=== PATIENT | female | born 1930 | race Caucasian/White ===

== ENCOUNTER 2017-03-25 09:48 | Observation (INO) | payer MEDICARE, MEDICAID ==
[2017-03-25] MEDS ORDERED: Pantoprazole 40 MG VIAL ONE (10:25)
[2017-03-25] MEDS ORDERED: Ondansetron HCl/PF 4 MG/2 ML Vial ONE (10:25)
[2017-03-25 10:32] LABS: #Lymphocytes 0.9 thou/uL (1.20-3.40); #Monocytes 0.7 thou/uL (0.11-0.59); #Neutrophils 8.8 thou/uL (1.40-6.50); %Basophils 0.4 % (0.0-1.0); %Eosinophils 0.2 % (0.0-10.0); %Lymphocytes 8.5 % (21.0-51.0); %Monocytes 6.8 % (0.0-10.0); Hemoglobin 14.6 g/dL (12.0-16.0); Mean Corpuscular HGB CONC 32.9 g/dL (32.0-36.0); Mean Corpuscular Hemoglobin 30.8 pg (27.0-31.0); Mean Corpuscular Volume 93.4 fl (81.0-99.0); Mean Platelet Volume 8.1 fL (7.4-10.4); Platelet Count 283 thou/uL (130-400); RBC Distribution Width 12.6 % (11.5-14.5); Red Blood Cell (RBC) Count 4.76 mill/uL (4.20-5.40); White Blood Cell (WBC) Count 10.5 thou/uL (4.8-10.8)
[2017-03-25 10:48] LABS: ALT (SGPT) 49 U/L (8-55); AST (SGOT) 41 U/L (5-34); Albumin 4.1 g/dL (3.4-4.8); Alkaline Phosphatase 103 U/L (40-150); Anion Gap 20 mmol/L (10-20); BUN (Urea Nitrogen) 20 mg/dL (9.8-20.1); Bilirubin, Total 0.4 mg/dL (0.2-1.2); CK (CPK) 49 U/L (29-168); Calc. Creatinine Clearance 0 mL/min (70-130); Calcium 9.8 mg/dL (7.8-10.44); Carbon Dioxide 17 mmol/L (23-31); Chloride 104 mmol/L (98-107); Estimated GFR-MDRD 33; Globulin 4.8 g/dL (2.4-3.5); Glucose 213 mg/dL (83-110); Lipase 46 U/L (8-78); Protein, Total 8.9 g/dL (6.0-8.3); Sodium 137 mmol/L (136-145)
[2017-03-25 10:53] LABS: CKMB 0.8 ng/mL (0-6.6); Troponin I Less than 0.010 ng/mL (< 0.028)
--- NOTE | 2017-03-25 11:37 | RAD ---
ABDOMINAL SURVEY WITH UPRIGHT CHEST AND 2 VIEW ABDOMEN: HISTORY: Nausea, vomiting, and abdominal pain. COMPARISON: Comparison is made to abdominal survey of 12/23/12. FINDINGS: Lungs appear clear on the upright chest. I cannot exclude some mild left basilar atelectasis, althou gh this appears to be a stable appearance. Bowel gas pattern unremarkable. No free air. No mass effect. No abnormal calcification. Scoliotic curvature of the spine with degenerative spine change. Radiopaque suture overlies the lower abdomen . Vascular calcifications. IMPRESSION: Unremarkable exam. POS: OFF
[2017-03-25 11:50] LABS: Bilirubin Small (Negative); Blood, Urine Negative (Negative); Clarity CLOUDY (Clear); Glucose, Urine (Dipstick) 500 mg/dL (Negative); Leukocyte Small (Negative); Nitrite Positive (Negative); Protein, Urine (Dipstick) 30 mg/dL (Neg-Trace); Specific Gravity, Urine 1.019 (1.002-1.036)
[2017-03-25 11:52] LABS: Bacteria/HPF 4+ HPF (None Seen); Hyaline Casts/LPF 0-3 HYALINE CAST LPF (0-3 Hyaline); Pathc Cast-AUWi Flag 0.54 (0-2.49); RBC/HPF 0-3 HPF (0-3); Squamous Epithelial None Seen HPF (0-3); WBC/HPF 21-50 HPF (0-3)
[2017-03-25] MEDS ORDERED: Ondansetron ODT 4 MG TAB SL PRN (13:52)
[2017-03-25] MEDS ORDERED: Ondansetron HCl/PF 4 MG/2 ML Vial IVP PRN (13:52)
[2017-03-25] MEDS ORDERED: Dextrose 5 %-0.45 % NaCl 1,000 ML IV SCH (14:00)
[2017-03-25 14:14] VITALS: BMI 26.1
[2017-03-25] MEDS ORDERED: Dextrose 5% in Water 1,000 ML IV PRN (14:16)
[2017-03-25] MEDS ORDERED: Dextrose 50% Abboject 50 ML SYRINGE SLOW IVP PRN (14:16)
[2017-03-25] MEDS ORDERED: HumaLOG 300 UNITS/3 ML VIAL SC PRN (14:16)
[2017-03-25 14:29] LABS: Troponin I 0.028 ng/mL (< 0.028)
[2017-03-25] MEDS ORDERED: Cephalexin 250 MG CAP PO SCH (14:30)
[2017-03-25 14:32] LABS: Hemoglobin A1c 6.3 % (4.0-6.0)
[2017-03-25 14:39] LABS: Cardiac Risk 3.8 (Less than 4.5)
[2017-03-25] MEDS: Sodium Chloride 0.9% 1,000 ML IV SCH (15:33)
[2017-03-25] MEDS: Clotrimazole 1% Cream 15 GM TUBE TOP SCH (15:52)
--- NOTE | 2017-03-25 16:19 | HP-2 ---
TIME AND DATE OF SERVICE: 03/25/2017 at 1300 hours. CODE STATUS: FULL CODE. PRIMARY CARE PHYSICIAN: Dr. Heath Parkinson. ATTENDING: Zoya Delatorre M.D. RESIDENT: Tio Licea MD HISTORIAN: Patient. CHIEF COMPLAINT: Nausea and vomiting. HISTORY OF PRESENT ILLNESS: Anaya Headley is an 87-year-old female with past medical history of coron jose alejandro artery disease, hypertension, hyperlipidemia, and mild dementia who presents with nausea and vomi ting starting last night with associated gastric pain. It was characterized as constant and slightly burning. The emesis that she has been nonbilious and nonbloody. The epigastric pain started after the emesis began. She also has associated chills and fevers as well as fatigue and decreased appetit e. She also endorses increased urinary frequency, but no dysuria. She was admitted in 05/2016 for s imilar symptoms and had EGD done by Dr. York, which showed small erosions in the distal esophagus a nd a stricture. Dilation was done at that time. Nurse states that the patient smells of old urine a nd she has got a rash that appears to be ringworm on her inner thigh up to the perineum area. The pa tient stated that it had been itchy there as well. The patient tolerated the procedure well and was discharged soon thereafter. In the ER, the patient received Zofran and 1 liter bolus of normal salin e. PAST MEDICAL HISTORY: 1. Gastritis. 2. Dementia. 3. Hypertension. 4. Hyperlipidemia. 5. History of alcohol abuse. 6. Hiatal hernia. PAST SURGICAL HISTORY: 1. Hysterectomy. 2. EGD and dilation in 05/2016. ALLERGIES: No known drug allergies. MEDICATIONS: What patient stated was her medications was not congruent with ER. ER record shows the re is a possibility of the patient's underlying dementia may make it worse. She does not remember he r medications. Apparently, the patient's [id number] manages all of her medications. The ER lis t of medications included Coreg 6.25 mg p.o. daily, Colace 100 mg p.o. b.i.d. p.r.n., ferrous sulfate 325 mg p.o. b.i.d., calcium carbonate 600 mg p.o. daily, amlodipine 10 mg p.o. daily, Protonix 40 mg p.o. daily. FAMILY HISTORY: Noncontributory. SOCIAL HISTORY: The patient endorses history of alcohol abuse, but states that she currently does no t use any alcohol. Does not smoke and does not use any drugs. She lives at home with her daughter-i n-law. The nurse taking care of the patient stated that the patient lives alone [facility]. REVIEW OF SYSTEMS: Twelve point review of systems including general, eyes, ENT, respiratory, CV, GI, , skin, musculoskeletal, neuro and psych were all reviewed and were unremarkable unless otherwise stated in the HPI. PHYSICAL EXAMINATION: VITAL SIGNS: Blood pressure 148/87, pulse 90, respiratory rate 18, temperature 98.6, pulse ox 98% on room air. Current weight 61 kilograms. GENERAL: The patient is alert and oriented x4, in no acute distress, well-developed and well-nourish ed, appropriately interactive, but very malodorous smelling of old urine. HEENT: Eyes: Pupils equal, round, reactive to light and accommodation. Extraocular muscles intact. Conjunctiva within normal limits. ENT: Left ruptured tympanic membrane. Right tympanic membrane pearly suazo without bulging or erythema. Very poor dentition. Dry mucous membranes and oropharyngea l mucosa. NECK: Supple without lymphadenopathy. No thyromegaly. CARDIOVASCULAR: Regular rate and rhythm. No murmurs or gallops. RESPIRATORY: Normal effort, no retractions. LUNGS: Clear to auscultation bilaterally. SKIN: Warm and dry without cyanosis, but there is a lesion to inner medial and posterior left thigh extending to the perineal region. I discussed essential clearing and defined erythematous border. ABDOMEN: Soft, epigastric tenderness to palpation. No rebound or rigidity. Bowel sounds normoactiv e x4. No masses or distention. No CVA tenderness. EXTREMITIES: No clubbing, cyanosis or pitting edema. MUSCULOSKELETAL: Structure and tone within normal limits. Full range of motion. NEUROLOGIC: No focal deficits. Sensation within normal limits. PSYCHIATRIC: Appropriate. LABORATORY DATA: White blood cell count 10.5 with 84% neutrophils, hemoglobin 14.6, hematocrit 44.4, platelets 283. Sodium 137, potassium 4.0, chloride 104, carbon dioxide 17, BUN 20, creatinine 1.5, glucose 213, calcium 9.8, total protein 8.9, albumin 4.1, total bilirubin 0.4, AST 41, ALT 49, alkali ne phosphatase 103. CK 49, CK-MB 0.8. Troponin is less than 0.01. Lipase 46. UA significant for 3 0 of protein, small leukocyte esterase, positive nitrite, 15 ketones, 500 glucose, red blood cells 0- 3, white blood cells 21-50, and 4+ bacteria. EKG showed T-wave inversion in lateral leads, more pron ounced from previous EKG in 05/2016. ASSESSMENT AND PLAN: An 87-year-old female with past medical history of coronary artery disease, hyp ertension, hyperlipidemia, and dementia, who presents with intractable nausea and vomiting. 1. Intractable nausea and vomiting. Placed on tele observation, p.r.n. Zofran for nausea. Etiology of nausea and vomiting, unknown at this time considering gastritis. The patient does have urinary t ract infection, which can be contributing as well. EGD in 05/2016 showed stricture and esophagitis a nd dilation was performed at that time. Symptoms in the ER improved with antiemetic. We will start IV fluids at 100 mL an hour and start attempt to clear liquid diet. 2. Hyperglycemia. No previous diagnosis of type 2 diabetes. We will check hemoglobin A1c and give sliding scale insulin and Accu-Cheks for the time being. We will also check a fasting lipid panel. 3. Acute kidney injury versus chronic kidney disease. We will monitor kidney function including GFR and creatinine and give IV fluids at 100 mL an hour. The patient has already received a 1 liter marielos us normal saline in the ER. 4. Uncomplicated urinary tract infection. Urine cultures were done in the ER. We will start Keflex and give IV fluids at 100 mL an hour. 5. Tinea corporis, start Lotrimin. Continue to monitor. 6. Tachycardia low likelihood ratio of PE. We will rule out PE with D-dimer. We will also check TS H. Wells' score was 1.5. 7. Gastroesophageal reflux disease. We will give Protonix. 8. Dementia, chronic. The patient appears to be at baseline, but we are unable to confirm that with family. No family members were present. 9. Deep venous thrombosis prophylaxis, Lovenox. 10. Diet: Clear liquids with intent to advance as tolerated once the patient's nausea is more contr olled. 11. Activity: Fall precautions. 12. Ambulate with assist. 13. Code status: FULL CODE. DISPOSITION AND LENGTH OF HOSPITAL STAY: Two days. Symptomatic medication will be provided. History and physical exam as well as management discussed with Dr. Zoya Delatorre.
[2017-03-25 17:03] LABS: Troponin I 0.015 ng/mL (< 0.028)
[2017-03-25 18:18] LABS: Free T4 (Free Thyroxine) 1.16 ng/dL (0.70-1.48)
[2017-03-25] MEDS: Cephalexin 250 MG CAP PO SCH (20:37)
[2017-03-26] MEDS: Sodium Chloride 0.9% 1,000 ML IV SCH ×2 (00:21→10:29)
[2017-03-26 06:14] LABS: #Lymphocytes 1.2 thou/uL (1.20-3.40); #Neutrophils 6.5 thou/uL (1.40-6.50); %Eosinophils 0.4 % (0.0-10.0); %Lymphocytes 13.9 % (21.0-51.0); %Monocytes 11.1 % (0.0-10.0); %Neutrophils 74.6 % (42.0-75.0); Hemoglobin 11.4 g/dL (12.0-16.0); Mean Corpuscular HGB CONC 31.8 g/dL (32.0-36.0); Mean Corpuscular Volume 94.3 fl (81.0-99.0); Mean Platelet Volume 8.2 fL (7.4-10.4); Platelet Count 216 thou/uL (130-400); RBC Distribution Width 12.7 % (11.5-14.5); White Blood Cell (WBC) Count 8.7 thou/uL (4.8-10.8)
[2017-03-26] MEDS ORDERED: Iopamidol 370 76% 100 ML VIAL ONE (06:17)
--- NOTE | 2017-03-26 06:26 | PDOC.FM ---
- Subjective Subjective: Mrs. Headley is doing better this morning. She had no acute events overnight. She does complain of increased dysuria compared to yesterday. She denies fever , chest pain, dyspnea, n/v/d, abd pain. - Objective MAR Reviewed: Yes Vital Signs & Weight: Vital Signs (12 hours) Temp Pulse Resp BP BP Pulse Ox 03/26/17 04:33 98.7 F 89 24 H 125/60 92 L 03/25/17 20:26 99.9 F H 100 24 H 126/62 92 L 03/25/17 19:29 99.9 F H 100 24 H 126/62 92 L Weight Weight 64.138 kg I&O: 03/24/17 03/25/17 03/26/17 06:59 06:59 06:59 Intake Total 1722 Output Total 1650 Balance 72 Result Diagrams: 03/26/17 05:36 03/26/17 05:36 <Tio Licea - Last Filed: 03/26/17 12:59> - Objective Vital Signs & Weight: Vital Signs (12 hours) Temp Pulse Pulse Pulse Resp BP BP 03/26/17 15:15 98.1 F 99 22 H 03/26/17 12:34 100 92 145/79 H 140/74 03/26/17 11:23 98.4 F 90 18 03/26/17 09:35 92 92 134/69 141/64 H 03/26/17 07:50 98.7 F 89 24 H BP Pulse Ox Pulse Ox 03/26/17 15:15 142/74 H 93 L 03/26/17 12:34 92 L 03/26/17 11:23 135/62 93 L 03/26/17 09:35 03/26/17 07:50 Weight Weight 64.138 kg I&O: 03/25/17 03/26/17 03/27/17 06:59 06:59 06:59 Intake Total 2172 1011 Output Total 1975 550 Balance 197 461 Result Diagrams: 03/26/17 05:36 03/26/17 05:36 <Julieth Peña - Last Filed: 03/26/17 19:43> Phys Exam - Physical Examination Constitutional: NAD HEENT: moist MMs, sclera anicteric Neck: no JVD, supple, full ROM Respiratory: no wheezing, no rales, no rhonchi, clear to auscultation bilateral Cardiovascular: RRR, no significant murmur Gastrointestinal: soft, non-tender, no distention Musculoskeletal: no edema Neurological: non-focal, normal sensation, moves all 4 limbs Psychiatric: normal affect, A&O x 3 <Tio Licea - Last Filed: 03/26/17 12:59> Dx/Plan (1) Intractable nausea and vomiting Code(s): R11.2 - NAUSEA WITH VOMITING, UNSPECIFIED Status: Acute Plan: Has had control with Zofran, likely 2/2 gastritis (2) UTI (urinary tract infection), uncomplicated Code(s): N39.0 - URINARY TRACT INFECTION, SITE NOT SPECIFIED Status: Acute Plan: UA: Prot 30, LE Small, Nitrite Pos, Glucose 500, WBC 21-50, Bacteria 4+ Urine Cx pending pt stated on keflex (3) Tinea corporis Code(s): B35.4 - TINEA CORPORIS Status: Acute Plan: lotrimin started (4) Tachycardia Code(s): R00.0 - TACHYCARDIA, UNSPECIFIED Status: Acute Plan: Likely 2/2 hypovolemia, this morning HR is 89 However, D-dimer was elevated, V/Q scan pending TSH was low at 0.0866, Free T3 low at 1.51, Free T4 is normal at 1.16 (5) Dementia Code(s): F03.90 - UNSPECIFIED DEMENTIA WITHOUT BEHAVIORAL DISTURBANCE Status: Acute Plan: Chronic, seems to be at baseline (6) GERD with esophagitis Code(s): K21.0 - GASTRO-ESOPHAGEAL REFLUX DISEASE WITH ESOPHAGITIS Status: Acute Plan: Protonix (7) Acute kidney injury Code(s): N17.9 - ACUTE KIDNEY FAILURE, UNSPECIFIED Status: Inactive Plan: Cr at admission was 1.50, Cr is now 1.13, continue IVFs at 100 ml/hr, monitoring Cr and GFR (8) Hyperglycemia Code(s): R73.9 - HYPERGLYCEMIA, UNSPECIFIED Status: Inactive Plan: Hemoglobin A1c was 6.3, consider starting pt on metformin <Tio Licea - Last Filed: 03/26/17 12:59> Attending Addendum - Attending Addendum I personally evaluated the patient and discussed the management with Dr. Vinayak. I agree with the History, Examination, Assessment and Plan documented above with any addition or exceptions noted below. The patient is feeling much better today. She is tolerating po antibiotics. Will clarify if patient has family or 24 hour care. <Julieth Peña - Last Filed: 03/26/17 19:43>
[2017-03-26 06:29] LABS: Anion Gap 13 mmol/L (10-20); BUN (Urea Nitrogen) 11 mg/dL (9.8-20.1); Calc. Creatinine Clearance 37 mL/min (70-130); Calcium 7.8 mg/dL (7.8-10.44); Carbon Dioxide 20 mmol/L (23-31); Chloride 111 mmol/L (98-107); Estimated GFR-MDRD 46; Glucose 118 mg/dL (83-110); Potassium 3.6 mmol/L (3.5-5.1); Sodium 140 mmol/L (136-145)
[2017-03-26] MEDS ORDERED: Enoxaparin Sodium 30 MG/0.3 ML SYRINGE SC SCH (09:00)
[2017-03-26] MEDS: Cephalexin 250 MG CAP PO SCH (09:22)
[2017-03-26] MEDS ORDERED: Ondansetron HCl/PF 4 MG/2 ML Vial IVP PRN (10:33)
[2017-03-26] MEDS ORDERED: Pantoprazole 40 MG GRANULES PACKET PO SCH (10:45)
[2017-03-26] MEDS ORDERED: Ondansetron ODT 4 MG TAB PO PRN (11:07)
--- NOTE | 2017-03-26 13:11 | CT ---
CT ANGIOGRAM THORAX WITH IV CONTRAST AND 3D RECONSTRUCTIONS: 03/26/2017 HISTORY: Elevated D-dimer. History of cancer. COMPARISON: Noncontrast CT thorax on 06/10/2016. FINDINGS: No filling defects are seen in the pulmonary arteries to suggest pulmonary embolus. Dense vascular c alcifications are again seen in the coronary arteries with vascular calcifications also again present in the thoracic aorta and at the origin of the great vessels. The previously noted dilated, fluid-filled esophagus is not present on today's exam. The mediastinal structures have a normal appearance. No lymphadenopathy is seen. There are scattered ground glass and linear densities within the lungs bilaterally, likely related to atelectasis. This exam is obtained in the expiratory phase of imaging. There is a single gallbladder calculus visualized. This was also noted on the prior exam. There is suggestion of a very small hiatal hernia. A remote lower right-sided rib fracture is present. IMPRESSION: 1. No CT evidence of a pulmonary embolus. 2. Dense atherosclerotic vascular calcifications. 3. Scattered areas of atelectasis within the lungs bilaterally. No discrete pulmonary nodule or mas s is visualized. POS: BIJAN
[2017-03-26] MEDS ORDERED: Docusate 100 MG CAP PO SCH (14:15)
[2017-03-26] MEDS ORDERED: Polyethylene Glycol 3350 17 GM Packet PO SCH (14:15)
[2017-03-26] MEDS: Clotrimazole 1% Cream 15 GM TUBE TOP SCH (14:56)
[2017-03-26 15:50] VITALS: BP 142/74; TEMP 98.1
[2017-03-27] MEDS ORDERED: Clotrimazole 1 % Cream 30 GM TUBE TOP SCH (09:00)
--- NOTE | 2017-03-27 20:57 | DIS-2 ---
DATE OF ADMISSION: 03/25/2017 DATE OF DISCHARGE: 03/26/2017. RESIDENT: Tio Licea MD ADMITTING ATTENDING: Zoya Delatorre M.D. DISCHARGE ATTENDING: Julieth Peña M.D. CONSULTATIONS: None. PROCEDURES: 1. Abdominal survey with upright chest on 2 view abdomen. Impression: Unremarkable exam. Comparis on made to abdominal survey on 12/23/2012. 2. CT angiogram thorax with IV contrast. Impression: No CT evidence of pulmonary embolus. Dense a therosclerotic vascular calcifications. Scattered areas of atelectasis within the lungs bilaterally. No discrete pulmonary nodule or masses visualized. 3. Urine culture, Escherichia coli, pansensitive. 4. Influenza type A and B negative. PRIMARY DIAGNOSIS: Intractable nausea and vomiting. SECONDARY DIAGNOSES: 1. Hyperglycemia. 2. Acute kidney injury on chronic kidney disease. 3. Uncomplicated urinary tract infection. 4. Tinea corporis. 5. Tachycardia. DISCHARGE MEDICATIONS: 1. Carvedilol 6.25 mg p.o. b.i.d. 2. Colace 100 mg p.o. b.i.d. p.r.n. 3. Calcium carbonate 600 mg p.o. daily. 4. Amlodipine 10 mg p.o. daily. 5. Ranitidine 150 mg p.o. b.i.d. 6. Aspirin 81 mg p.o. daily. 7. Ferrous sulfate 325 mg p.o. daily. 8. Keflex 500 mg p.o. q.12 hours for 4 days. 9. Lotrimin 1% cream topical daily. DISCONTINUED MEDICATIONS: 1. Zofran 4 mg. 2. Dicyclomine 20 mg. 3. Protonix 40 mg. 4. Rocephin 1 gram. 5. Levaquin 750 mg. 6. MiraLax. 7. Lovenox. HISTORY OF PRESENT ILLNESS AND HOSPITAL COURSE: Anaya Headley is an 87-year-old female with past medi shirley history of coronary artery disease, hypertension, hyperlipidemia, and mild dementia who presented to the ED with nausea and vomiting started one day prior with associated epigastric pain, was charac terized as constant and slightly burning. The emesis was nonbilious and nonbloody. She had also had fevers and chills as well as fatigue and decreased appetite. She also endorsed increased urinary fr equency and no dysuria, recent admission in 05/2016 was for similar symptoms. An EGD was performed b julieta Scott which showed small erosions in the distal esophagus and stricture dilation was done at t hat time. The patient also has a rash on her thigh that she thinks is ringworm. It has been very it unique. The patient was given Zofran and a liter of bolus in the ER. On admission, blood pressure was 148/87, pulse was 90, respiratory rate 18, temperature was 98.6. She was satting 98% on room air. P hysical exam was significant for some epigastric tenderness to palpation. No rebound or rigidity. S he was also very malodorous and smells of old urine. She also had a rash extending from her medial a nd posterior left thigh to her perineal region. She had a white blood cell count of 10.5 with 84% ne utrophils. Creatinine of 1.5 and a BUN of 20, glucose of 213. UA was significant for 30 proteins, s mall leukocyte esterase, positive nitrite, 15 ketones, 500 glucose, 0-3 red blood cells and 21-50 whi te blood cells with 4+ bacteria. During the admission, the patient's nausea and vomiting was control led with p.r.n. Zofran. Patient's hemoglobin A1c was 6.3, blood sugar was controlled with sliding sc mark insulin. We need to consider outpatient metformin. Patient had a TSH of 0.0866, a free T4 that was normal at 1.16 and a free T3 that was low at 1.1. May need to consider outpatient treatment, but this is likely subclinical hypothyroidism. The patient's kidney function improved over the first ni ght of admission with IV maintenance fluids running at 100 mL an hour. Lotrimin was started to treat tinea and Keflex was started for the UTI. The patient's hospital course was unremarkable and on 07/2017, the patient's family and the patient were ready for discharge. Apparently, the patient's da [id number] works for a home health agency and also takes care of the patient and states that she w ill have help at home. The patient lives with another woman in her 80s as well as a relative in her 40s. The patient is able to bathe and take care of normal activities of daily living on her own. Th e family was adamant that they would be able to take care of the patient that she was in good hands. The patient agreed with this and requested to be discharged. At this point, she was stable and lissy red for discharge. DISPOSITION: The patient will likely do well if she continues her Keflex to treat the pansensitive E scherichia coli urinary tract infection. She will also do well if she gets good care at home vannessa mcduffie assistance with her activities of daily living. I spoke to case management who was working to get home health to her home to help her with PT and OT. The patient thought that she could benefit from this. DISCHARGE INSTRUCTIONS: 1. Location: Home. 2. Diet: Heart healthy and diabetic diet. 3. Activity: As tolerated. 4. Follow up with primary care physician within a week to discuss hospital admission.
== END 2017-03-26 18:14 | disposition home or self-care (01) ==
LOC: ERS 09:48 → 2SW 12:26
PROVIDERS: ADMIT Family Medicine; ATTEND Family Medicine
DX: R11.2 Nausea with vomiting, unspecified (principal); R73.9 Hyperglycemia, unspecified; N39.0 Urinary tract infection, site not specified; B35.4 Tinea corporis; I25.10 Atherosclerotic heart disease of native coronary artery without angina pectoris; E78.5 Hyperlipidemia, unspecified; I12.9 Hypertensive chronic kidney disease with stage 1 through stage 4 chronic kidney disease, or unspecified chronic kidney disease; N18.9 Chronic kidney disease, unspecified; N17.9 Acute kidney failure, unspecified; K21.0 Gastro-esophageal reflux disease with esophagitis; F03.90 Unspecified dementia, unspecified severity, without behavioral disturbance, psychotic disturbance, mood disturbance, and anxiety; F10.11 Alcohol abuse, in remission; E86.0 Dehydration; Z79.82 Long term (current) use of aspirin; Z79.899 Other long term (current) drug therapy; Z91.018 Allergy to other foods; Z90.710 Acquired absence of both cervix and uterus; Z98.890 Other specified postprocedural states
CPT/HCPCS: 51701; 71275; 74022; 80048; 80061; 82550; 82553; 82962 ×2; 83036; 83690; 84439; 84481; 84484 ×2; 85025; 85379; 87077; 87086; 87186; 87804 ×2; 93005; 96361 ×3; 96365; 96372 ×2; 96375; 97116; 97139 ×3; 97530; 99285; G0378; G8978; G8979; G8987; G8988; 36415; 36416; 80053; 81003; 81015; 84443; A4216; A4353; C9113; J0696; J1650; J1956; J2405; Q0162

== ENCOUNTER 2018-12-29 17:03 | Emergency (ER) | payer MEDICARE, MEDICAID | END 2018-12-29 18:49 | disposition left against medical advice (07) | LOC: ERS 17:03 | DX: Z53.21 Procedure and treatment not carried out due to patient leaving prior to being seen by health care provider (principal) | CPT/HCPCS: 99282 ==

== ENCOUNTER 2019-01-01 11:19 | Emergency (ER) | payer MEDICARE, MEDICAID ==
[2019-01-01] MEDS ORDERED: Ondansetron PF 4 MG/2 ML Vial ONE (11:39)
[2019-01-01] MEDS ORDERED: Morphine 4 MG/ML VIAL ONE (11:39)
[2019-01-01 12:26] LABS: #Eosinphils 0.2 thou/uL (0.0-0.7); #Lymphocytes 1.4 thou/uL (1.20-3.40); #Monocytes 0.4 thou/uL (0.11-0.59); #Neutrophils 4.5 thou/uL (1.40-6.50); %Basophils 0.3 % (0.0-1.0); %Eosinophils 2.5 % (0.0-10.0); %Monocytes 5.8 % (0.0-10.0); %Neutrophils 69.4 % (42.0-75.0); Hemoglobin 12.2 g/dL (12.0-16.0); Mean Corpuscular HGB CONC 33.5 g/dL (32.0-36.0); Mean Corpuscular Hemoglobin 29.9 pg (27.0-31.0); Mean Corpuscular Volume 89.2 fL (78.0-98.0); Mean Platelet Volume 8.8 fL (7.4-10.4); Platelet Count 277 thou/uL (130-400); RBC Distribution Width 13.4 % (11.5-14.5); Red Blood Cell (RBC) Count 4.08 mill/uL (4.20-5.40); White Blood Cell (WBC) Count 6.5 thou/uL (4.8-10.8)
[2019-01-01 12:48] LABS: Bacteria/HPF 4+ HPF (None Seen); Bilirubin Negative (Negative); Blood, Urine Trace (Negative); Clarity Turbid (Clear); Glucose, Urine (Dipstick) Normal (Negative); Leukocyte 250 Leu/uL (Negative); Nitrite 2+ (Negative); Protein, Urine (Dipstick) 10 mg/dL (Neg-Trace); Squamous Epithelial None Seen HPF (0-3); Urobilinogen Normal mg/dL (Less than 2); WBC/HPF Greater than 50 HPF (0-3)
[2019-01-01 12:48] LABS: ALT (SGPT) 8 U/L (8-55); AST (SGOT) 16 U/L (5-34); Albumin 3.7 g/dL (3.4-4.8); Alkaline Phosphatase 85 U/L (40-110); Anion Gap 16 mmol/L (10-20); BUN (Urea Nitrogen) 23 mg/dL (9.8-20.1); Bilirubin, Total Less than 0.2 mg/dL (0.2-1.2); Calc. Creatinine Clearance 0 mL/min (70-130); Calcium 8.8 mg/dL (7.8-10.44); Carbon Dioxide 20 mmol/L (23-31); Chloride 104 mmol/L (98-107); Estimated GFR-MDRD 26; Globulin 4.3 g/dL (2.4-3.5); Glucose 111 mg/dL (83-110); Lipase 58 U/L (8-78); Potassium 4.4 mmol/L (3.5-5.1); Sodium 136 mmol/L (136-145)
--- NOTE | 2019-01-01 14:15 | CT ---
CT ABDOMEN AND PELVIS WITHOUT CONTRAST: HISTORY: Burning with urination. Lower abdominal pain. COMPARISON: 06/10/2016 FINDINGS: Absence of oral and IV contrast reduces the sensitivity of the exam, particularly for evaluation of s olid organs involved. There are mild infiltrates versus atelectatic change in the lung bases. No free air or free fluid is seen in the abdomen or pelvis. Calcified gallstones are present. There is colonic diverticulosis. The patient is post hysterectomy. There is a tiny calculus in the right kidney. No calculi are seen in the left kidney, either ureter o r the urinary bladder. No hydroureteronephrosis is seen on either side. There are vascular calcifications without evidence of aneurysmal dilatation of the abdominal aorta. D egenerative changes are present in the spine. IMPRESSION: 1. Cholelithiasis. 2. Tiny, nonobstructing right renal calculus. 3. Colonic diverticulosis. POS: MZA
[2019-01-01] MEDS ORDERED: cefTRIAXone\\ROCEPHIN 1 GM VIAL ONE (15:22)
== END 2019-01-01 16:03 | disposition home or self-care (01) ==
LOC: ERS 11:19
DX: N30.00 Acute cystitis without hematuria (principal); E86.0 Dehydration; I10 Essential (primary) hypertension; Z79.899 Other long term (current) drug therapy
CPT/HCPCS: 36415; 51701; 74176; 80053; 81003; 81015; 83690; 85025; 87077; 87086; 87186; 96361; 96365; 96375; A4353; J0696; J2270; J2405

== ENCOUNTER 2019-10-09 16:18 | Inpatient (IN) | payer MEDICARE, MEDICAID ==
--- NOTE | 2019-10-09 16:56 | RAD ---
EXAM: Chest one view: HISTORY: Chest pain for several days getting worse COMPARISON: 12/27/2014 FINDINGS: Increased linear and interstitial markings in the mid and lower lung zones. Small old granulomatous calcifications. Less than optimal inspiration. Heart size: Within normal limits. Lungs: Clear of acute process. No evidence for confluent pneumonia, pleural effusion, acute edema, or pneumothorax, or other signifi cant acute process. IMPRESSION: No significant acute intrathoracic disease. Atherosclerosis of the aorta. Old granulomatous disease.
[2019-10-09 17:03] LABS: #Eosinphils 0.3 thou/uL (0.0-0.7); #Lymphocytes 1.9 thou/uL (1.20-3.40); #Monocytes 0.9 thou/uL (0.11-0.59); #Neutrophils 5.1 thou/uL (1.40-6.50); %Basophils 0.5 % (0.0-1.0); %Eosinophils 3.4 % (0.0-10.0); %Lymphocytes 23.1 % (21.0-51.0); Hemoglobin 12.5 g/dL (12.0-16.0); Mean Corpuscular HGB CONC 33.5 g/dL (32.0-36.0); Mean Corpuscular Hemoglobin 30.5 pg (27.0-31.0); Mean Corpuscular Volume 90.9 fL (78.0-98.0); Mean Platelet Volume 8.3 fL (7.4-10.4); Platelet Count 335 thou/uL (130-400); RBC Distribution Width 13.4 % (11.5-14.5); Red Blood Cell (RBC) Count 4.09 mill/uL (4.20-5.40); White Blood Cell (WBC) Count 8.2 thou/uL (4.8-10.8)
[2019-10-09 17:28] LABS: ALT (SGPT) 10 U/L (8-55); AST (SGOT) 15 U/L (5-34); Albumin 3.8 g/dL (3.4-4.8); Alkaline Phosphatase 99 U/L (40-110); Anion Gap 13 mmol/L (10-20); BUN (Urea Nitrogen) 18 mg/dL (9.8-20.1); Bilirubin, Total 0.2 mg/dL (0.2-1.2); Calc. Creatinine Clearance 0 mL/min (70-130); Calcium 8.9 mg/dL (7.8-10.44); Carbon Dioxide 26 mmol/L (23-31); Chloride 105 mmol/L (98-107); Estimated GFR-MDRD 31; Globulin 4.1 g/dL (2.4-3.5); Glucose 141 mg/dL (83-110); Lipase 67 U/L (8-78); Potassium 4.7 mmol/L (3.5-5.1); Protein, Total 7.9 g/dL (6.0-8.3); Sodium 139 mmol/L (136-145)
[2019-10-09 17:55] LABS: Bacteria/HPF 4+ HPF (None Seen); Bilirubin Negative (Negative); Blood, Urine Negative (Negative); Clarity Turbid (Clear); Glucose, Urine (Dipstick) 150 mg/dL (Negative); Ketone, Urine Negative (Negative); Leukocyte 500 Leu/uL (Negative); Nitrite 2+ (Negative); Protein, Urine (Dipstick) 10 mg/dL (Neg-Trace); RBC/HPF 0-3 HPF (0-3); Specific Gravity, Urine 1.014 (1.002-1.036); Squamous Epithelial 0-3 HPF (0-3); Urobilinogen Normal mg/dL (Less than 2); WBC/HPF Greater than 50 HPF (0-3)
[2019-10-09] MEDS ORDERED: Vancomycin 1 GM/200 ML BAG ONE (18:09)
[2019-10-09] MEDS ORDERED: CEFAZOLIN 1 GM VIAL ONE (18:09)
--- NOTE | 2019-10-09 18:39 | CT ---
CT Abdomen Pelvis WO Con 10/09/2019 6:04 PM HISTORY: Lower abdominal pain. Pain is located mainly in a suprapubic location. History of prior hysterectomy. COMPARISON: 01/01/2019 Technique: Multiple contiguous axial CT images are obtained through the abdomen and pelvis without IV contrast. Coronal reformats are provided. FINDINGS: This examination is limited for the evaluation of solid organs and vascular structures due to the lac k of intravenous contrast. Lower Chest: There are linear and parenchymal airspace densities seen at the right lung base which ar e overall similar to prior study and may be related to scarring. Similar finding is seen at the left lung base but to a lesser extent. Abdomen: Liver: Grossly normal non-enhanced CT appearance. Gallbladder: Gallbladder calculus again present. Pancreas: Atrophic. Spleen: Grossly normal nonenhanced CT appearance. Adrenals: Grossly normal nonenhanced CT appearance. Kidneys: Stable nonobstructing calculus superior pole right kidney. No left renal calculus is present . There is no hydronephrosis. Ureters: No ureteral calculus is seen.. Pelvis: Urinary bladder: Incompletely distended. Reproductive Organs: Evidence of hysterectomy. Lymph Nodes: No enlarged lymph nodes. Bowel: There are small hiatal hernia is present. Colonic diverticulosis is again seen throughout the colon with small amount retained fecal material seen throughout the colon. 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 Appendix: Not visualized, but there are no secondary signs to suggest appendicitis. Peritoneum: No free fluid, free air, or fluid collection. Retroperitoneum: within normal limits. Vessels: Dense vascular calcifications are seen in the coronary arteries as well as involving the vis ualized thoracic aorta, abdominal aorta, and iliac arteries.. Abdominal Wall: Evidence of postoperative changes anterior aspect lower pelvis. Bones: Multilevel degenerative changes in the spine with left convex curvature lumbar spine. IMPRESSION: 1. Stable nonobstructing superior pole right renal calculus. No ureteral calculi are seen bilaterally , and there is no hydronephrosis. 2. Cholelithiasis. 3. Colonic diverticulosis. 4. Stable large duodenal diverticulum. 5. Chronic bibasilar lung changes. 6. Extensive dense vascular calcifications.
--- NOTE | 2019-10-09 18:42 | PDOC.FPRHP ---
- History of Present Illness Chief Complaint: abdominal pain History of Present Illness: Patient is an 89 y/o female who presents to the ED for evaluation of lower ABD Pain. Patient states that the pain is located in the suprapubic region , is sharp in nature and without radiation, and associated with urgency, frequency, and dysuria. Patient states that these symptoms have been present for 1 week and that she has taken several "kidney pills" at home, but that nothing has helped. Patient denies fevers, chills, inability to maintain PO intake, back or flank pain, hematuria, vaginal discharge, vaginal lesions, or bloody stools. Patient states that she has a history of UTIs in the past but has not had one recently. She took 2 Advils for pain. Discussed with nzaogmda-ev-wlu laz, patient may be slightly more confused than normal, usually AxO 2-3, lives at home with son and her, hx of UTI 2 weeks ago, appeared to be resolved before complaints of pain today ED Course: In the ED, given 1L NS, started on vanc/cefazolin, give 1mg morphine - Allergies/Adverse Reactions Allergies Allergy/AdvReac Type Severity Reaction Status Date / Time [place] Allergy Verified 06/13/19 02:55 No Known Drug Intolerances Allergy Verified 10/09/19 23:36 - Home Medications Medication Instructions Recorded Confirmed Type Carvedilol [Coreg] 6.25 mg PO BID 08/29/14 10/09/19 History Calcium Carbonate [Caltrate 600] 600 mg PO DAILY 12/29/14 10/09/19 History Amlodipine Besylate [amLODIPine 10 mg PO DAILY 06/11/16 10/09/19 History Besylate] Aspirin [Aspirin EC] 81 mg PO DAILY 03/25/17 10/09/19 History Ranitidine HCl 150 mg PO BID 03/25/17 10/09/19 History - History PMHx: HTN, CKD PSHx: Hysterectomy Social: denies Eto and drug use FHx: noncontributory - Review of Systems General: denies: fever/chills, night sweats Eyes: denies: eye pain, vision changes ENT: denies: nasal congestion, rhinorrhea Respiratory: denies: cough, congestion, shortness of breath Cardiovascular: reports: chest pain (Notes she has central CP sometimes, not today). denies: palpitation, edema Gastrointestinal: reports: abdominal pain (lower). denies: nausea, vomiting Genitourinary: reports: dysuria, other (urinary frequency) Skin: denies: rashes, lesions, jaundice Musculoskeletal: denies: pain, tenderness, stiffness Neurological: denies: numbness, syncope, weakness Psychological: denies: anxiety, depression - Vital signs BP: 98/50 HR: 82 RR: 17 Tmax: 99.1 Pox: 98% on RA Wt: 57.4kg - Physical Exam Constitutional: NAD, well developed HEENT: normocephalic and atraumatic, EOMI Neck: supple, no JVD Chest: no-tender to palpation, no lesions Heart: RRR, normal S1/S2, no murmurs/rubs/gallops, pulses present -Heart: Trace edema bilaterally Lungs: CTAB, no respiratory distress, good air movement Abdomen: soft, bowel sounds present, other (Suprapubic and L CVA tenderness present) Musculoskeletal: normal structure, ROM grossly normal Neurological: no focal deficit, other (AxO to person and place) Skin: no rash/lesions, no jaundice Heme/Lymphatic: no purpura, no petechia Psychiatric: normal mood and affect -Psychiatric: A&O X2 oriented to person, place FMR H&P: Results - Labs Result Diagrams: 10/10/19 05:47 10/10/19 05:47 Lab results: WBC 8.2 thou/uL (4.8-10.8) 10/09/19 16:49 Hgb 12.5 g/dL (12.0-16.0) 10/09/19 16:49 Hct 37.2 % (36.0-47.0) 10/09/19 16:49 MCV 90.9 fL (78.0-98.0) 10/09/19 16:49 Plt Count 335 thou/uL (130-400) 10/09/19 16:49 Neutrophils % 62.0 % (42.0-75.0) 10/09/19 16:49 Sodium 139 mmol/L (136-145) 10/09/19 16:49 Potassium 4.7 mmol/L (3.5-5.1) 10/09/19 16:49 Chloride 105 mmol/L (98-107) 10/09/19 16:49 Carbon Dioxide 26 mmol/L (23-31) 10/09/19 16:49 BUN 18 mg/dL (9.8-20.1) 10/09/19 16:49 Creatinine 1.56 mg/dL (0.6-1.1) H 10/09/19 16:49 Glucose 141 mg/dL (83-110) H 10/09/19 16:49 Calcium 8.9 mg/dL (7.8-10.44) 10/09/19 16:49 Total Bilirubin 0.2 mg/dL (0.2-1.2) 10/09/19 16:49 AST 15 U/L (5-34) 10/09/19 16:49 ALT 10 U/L (8-55) 10/09/19 16:49 Alkaline Phosphatase 99 U/L (40-110) 10/09/19 16:49 B-Natriuretic Peptide 44.0 pg/mL (0-100) 10/09/19 16:49 Serum Total Protein 7.9 g/dL (6.0-8.3) 10/09/19 16:49 Albumin 3.8 g/dL (3.4-4.8) 10/09/19 16:49 Lipase 67 U/L (8-78) 10/09/19 16:49 Urine Ketones Negative mg/dL (Negative) 10/09/19 17:32 Urine Blood Negative (Negative) 10/09/19 17:32 Urine Nitrite 2+ (Negative) A 10/09/19 17:32 Ur Leukocyte Esterase 500 [place]/uL (Negative) A 10/09/19 17:32 Urine RBC 0-3 HPF (0-3) 10/09/19 17:32 Urine WBC Greater than 50 HPF (0-3) A 10/09/19 17:32 Ur Squamous Epith Cells 0-3 HPF (0-3) 10/09/19 17:32 Urine Bacteria 4+ HPF (None Seen) A 10/09/19 17:32 - EKG Interpretation EKG: normal sinus FMR H&P: A/P - Plan Patient is an 89 yo elderly female, hx of HTN, GERD, CKD, Hx UTIs who presents with complaints of suprapubic abdominal pain, dysuria and urinary freq. 1) Acute Metabolic Encephalopathy 2/2 UTI UA +nitrates, +leuks, WBC, bacteria Afebrile, WBC nml Previous UCx susceptible to rocephin CT Abdomen: R nonobstructive kidney stone - repeat am CBC and CMP - vitals q4hr - Started rocephin 1g q24h - UCx and BCx pending - Tylenol PRN - CM and Palliative consult, for discharge planning/HH and advanced directive discussion Hypotension 98/54 in ED, received 1.5L NS in EMS & ED - holding bp meds - started on LR 1000 @100ml - q4hr vitals Chest Pain GERD vs MSK Denies CP today EKG: normal sinus Trop negative -famotidine BID started -tylenol PRN Hx CKD - Cr 1.54 today 10/08, last visit 1.84 - Started on IVF - ordered morning CMP Hx HTN - holding bp meds - q4hr vitals Hx GERD - started famotidine Dispo: admit obs, LOS likely <24h, home with son and [id number]-wi-pwq, possible HH pending CM Code status: Full code VTE PPx: heparin, CrCl 23 Diet: CC, heart healthy FMR H&P: Upper Level - Plan Date/Time: 10/09/191841 INery MD, have evaluated this patient and agree with findings/plan as outlined by [facility] internship resident. Pertinent changes/additions are listed here. This is an 89 yo F w/ PMH of HTN, HLD and UTIs presents to the ER for burning with urination and mild confusion. The patient reports that throughout the day today she had severe burning with urination. She denies any blood in the urine. Patient is a poor hx and upon review of records does have a hx of mild dementia. Per family report the patient did call [facility] 2 weeks ago and was treated with abx - unsure which abx was prescribed. This helped for a few days but then the burning got worse today. The patient lives with her son and daughter in law who help take care of her. The patient deneis any fever, chills , NVD. Endorses abdominal pain in the lower abdomen. Endorses chest pain occasionally that is not new and not worsened. She is able to state the location but does not know time/date. See [facility] internship note for full HPI/details. PE: General: NAD, elderly F HEENT: NC/AT Cardio: RRR, no murmurs, rubs or gallops, trace edema Resp: CTAB Abd: mild suprapubic tenderness, soft, non distended, CVA tenderness on Left MSK: trace edema b/l lower extremities Psych: alert, oriented to place and person, not oriented to time or year. Unable to state the president. Unable to recall son/daughter phone number Plan: Encephalopathy 2/2 UTI Patient with UA positive for bacteria, leuks, turbid. Failed outpatient tx per family. Unsure mental status baseline, per family axox3 at home, axox2 here. CT abd showing R renal calculi with no hydronephrosis. - Will treat UTI with rocephin - Will f/u urine cx and transition to oral based on sensitivities. Previous cultures showing E coli sensitive to rocephin. - Will give gentle IVF, encourage oral hydration - Monitor VS - Blood cx obtained in the ER and will f/u result, but did not meet SIRS nor sepsis criteria. - Admit to medical, obs CKD stage G3b BUN/Cr: 18.1.56, GFR 31, at baseline - Will continue to monitor. Will give gentle IVF GERD - will give protonix HTN - aware, will monitor, restart home meds Dispo: admit to med, obs. LOS <48hrs. CM sonsulted for discharge planning, patient could likely benefit from HH. Ppx: heparin, pepcid Code: Full. Palliative care consulted to help discuss advanced directives. Case discussed with Dr. Coelho Addendum - Attending - Attending Attestation Date/Time: 10/10/19 1845 I personally evaluated the patient and discussed the management with the team. I agree with the History, Examination, Assessment and Plan documented above with any addition or exceptions noted below. Mild TTP over bladder. Expand coverage as risk for resistant organism with recent tx. No evidence of sepsis so will hold on zosyn, for instance.
[2019-10-09] MEDS ORDERED: Fentanyl 100 MCG/2 ML VIAL ONE (19:51)
[2019-10-09] MEDS ORDERED: Famotidine 20 MG TAB PO SCH (22:00)
[2019-10-09] MEDS ORDERED: cefTRIAXone\\ROCEPHIN 1 GM in Sodium Chloride 0.9% 100 ML IVPB SCH (22:00)
[2019-10-09] MEDS ORDERED: Heparin 5,000 UNITS/ML VIAL SC SCH (22:00)
[2019-10-09] MEDS: Lactated Ringer's 1,000 ML IV SCH (22:40)
[2019-10-09 23:53] VITALS: BMI 22.7
[2019-10-10] MEDS: Acetaminophen 325 MG TAB PO PRN ×2 (00:40→06:31)
[2019-10-10] MEDS ORDERED: Melatonin 3 MG TAB PO PRN (03:20)
[2019-10-10 06:19] LABS: #Eosinphils 0.3 thou/uL (0.0-0.7); #Lymphocytes 1.9 thou/uL (1.20-3.40); #Monocytes 0.6 thou/uL (0.11-0.59); #Neutrophils 4.2 thou/uL (1.40-6.50); %Basophils 0.1 % (0.0-1.0); %Eosinophils 4.9 % (0.0-10.0); %Lymphocytes 26.5 % (21.0-51.0); %Monocytes 9.1 % (0.0-10.0); %Neutrophils 59.4 % (42.0-75.0); Hemoglobin 10.7 g/dL (12.0-16.0); Mean Corpuscular HGB CONC 32.6 g/dL (32.0-36.0); Mean Corpuscular Hemoglobin 29.7 pg (27.0-31.0); Mean Corpuscular Volume 91.1 fL (78.0-98.0); Mean Platelet Volume 8.3 fL (7.4-10.4); Platelet Count 275 thou/uL (130-400); RBC Distribution Width 13.5 % (11.5-14.5); Red Blood Cell (RBC) Count 3.62 mill/uL (4.20-5.40)
[2019-10-10 06:34] LABS: ALT (SGPT) 8 U/L (8-55); AST (SGOT) 14 U/L (5-34); Albumin 3.2 g/dL (3.4-4.8); Alkaline Phosphatase 86 U/L (40-110); Anion Gap 11 mmol/L (10-20); BUN (Urea Nitrogen) 12 mg/dL (9.8-20.1); Bilirubin, Total 0.2 mg/dL (0.2-1.2); Calc. Creatinine Clearance 28 mL/min (70-130); Calcium 8.2 mg/dL (7.8-10.44); Carbon Dioxide 23 mmol/L (23-31); Chloride 110 mmol/L (98-107); Estimated GFR-MDRD 38; Globulin 3.4 g/dL (2.4-3.5); Glucose 101 mg/dL (83-110); Protein, Total 6.6 g/dL (6.0-8.3); Sodium 140 mmol/L (136-145)
--- NOTE | 2019-10-10 06:44 | PDOC.FM ---
- Subjective Subjective: AAOx2 NAEO. Pt reports suprapubic tenderness and weakness. Sitting up in bed, eating breakfast, Son should be at bedside later today - Objective MAR Reviewed: Yes Vital Signs & Weight: Vital Signs (12 hours) Temp Pulse Resp BP BP Pulse Ox 10/10/19 04:19 97.9 F 78 20 127/66 92 L 10/09/19 23:55 98.1 F 74 18 108/58 L 96 10/09/19 21:40 97.6 F 74 20 108/52 L 96 Weight Weight 60.101 kg I&O: 10/08/19 10/09/19 10/10/19 06:59 06:59 06:59 Intake Total 280 Balance 280 Result Diagrams: 10/10/19 05:47 10/10/19 05:47 Phys Exam - Physical Examination Constitutional: NAD HEENT: PERRLA, moist MMs Neck: supple, full ROM Respiratory: no wheezing, no rales, no rhonchi, clear to auscultation bilateral Cardiovascular: RRR, no significant murmur, no rub Gastrointestinal: soft, no distention, positive bowel sounds Slight suprapubic tenderness Musculoskeletal: no edema Neurological: non-focal Psychiatric: normal affect Deviation from normal: AAOx2 Skin: no rash Dx/Plan (1) UTI (urinary tract infection) Status: Acute (2) Chest pain, atypical Code(s): R07.89 - OTHER CHEST PAIN Status: Acute (3) Altered mental state Code(s): R41.82 - ALTERED MENTAL STATUS, UNSPECIFIED Status: Acute (4) CKD (chronic kidney disease) Code(s): N18.9 - CHRONIC KIDNEY DISEASE, UNSPECIFIED Status: Chronic (5) Hypertension Code(s): I10 - ESSENTIAL (PRIMARY) HYPERTENSION Status: Chronic - Plan Plan: Acute Metabolic Encephalopathy 2/2 UTI -UA concerning for infection on admission -continues to be afebrile, WBC wnl -hx of UTIs susceptible to rocephin -CT Abdomen: R nonobstructive kidney stone -Rocephin 1g q24h, will transition to cefdinir for outpatient treatment -UCx and BCx pending -CM and Palliative consult: discharge planning, advanced directive -son should be at bedside later today, will discuss pts mental status with son Hypotension -holding bp meds -LR 1000 @100ml/hr -continue to monitor Chest Pain -GERD vs MSK -denies CP -EKG: normal sinus, Trop negative -famotidine BID started Hx CKD -Cr 1.33 down from 1.54 on admission; last visit 1.84 -LR 1000 @100 ml/hr Hx HTN -holding bp meds due to soft pressures Hx GERD -started famotidine Dispo: Discharge pending CM and palliative care recs; likely home with son and daughter in law today or tomorrow Code status: Full code VTE PPx: heparin, CrCl 23 Diet: CC, heart healthy Addendum - Attending - Attending Attestation Date/Time: 10/10/19 9384 I personally evaluated the patient and discussed the management with Dr. Sun. I agree with the History, Examination, Assessment and Plan documented above with any addition or exceptions noted below. Patient complaining of bladder pain at this time. CT scan yesterday shows stones but no obstruction. Continue treatment for UTI, await sensitivities. Will give trial of Pyridium. Renal function improved. Working to see what antibiotic she was taking outpatient.
[2019-10-10] MEDS: Lactated Ringer's 1,000 ML IV SCH ×2 (07:55→17:10)
[2019-10-10] MEDS: Heparin 5,000 UNITS/ML VIAL SC SCH ×3 (07:55→20:41)
[2019-10-10] MEDS ORDERED: Famotidine 20 MG TAB PO SCH (09:00)
[2019-10-10] MEDS ORDERED: Prevnar 13-Val Conj/PF 0.5 ML SYRINGE IM ONE (09:00)
[2019-10-10] MEDS ORDERED: Acetaminophen 325 MG TAB PO PRN (11:28)
[2019-10-10] MEDS: cefTRIAXone\\ROCEPHIN 1 GM in Sodium Chloride 0.9% 100 ML IVPB SCH (20:40)
[2019-10-11] MEDS: Lactated Ringer's 1,000 ML IV SCH ×3 (03:39→23:39)
--- NOTE | 2019-10-11 05:10 | PDOC.FM ---
- Subjective Subjective: AAOx2. Nurses report that she is often calling them to the room for help. Pt reports that she feels weak. - Objective MAR Reviewed: Yes Vital Signs & Weight: Vital Signs (12 hours) Temp Pulse Resp BP BP BP Pulse Ox 10/11/19 04:00 97.9 F 76 18 121/70 97 10/10/19 23:46 97.9 F 90 18 155/71 H 97 10/10/19 20:00 98 F 96 20 132/72 97 10/10/19 19:43 98 F 96 20 132/72 97 Weight Weight 59.874 kg I&O: 10/09/19 10/10/19 10/11/19 06:59 06:59 06:59 Intake Total 280 840 Output Total 2800 Balance 280 -1960 Result Diagrams: 10/11/19 05:38 10/11/19 05:38 Phys Exam - Physical Examination Resting comfortably in bed HEENT: PERRLA Poor oral hygeine Neck: supple, full ROM Respiratory: no wheezing, no rales, no rhonchi Cardiovascular: RRR, no significant murmur, no rub Gastrointestinal: soft, no distention, positive bowel sounds slightly tender, better than yesterday Musculoskeletal: no edema Neurological: non-focal, normal sensation Deviation from normal: AAOx2 Skin: no rash Dx/Plan (1) UTI (urinary tract infection) Status: Acute (2) Chest pain, atypical Code(s): R07.89 - OTHER CHEST PAIN Status: Acute (3) Altered mental state Code(s): R41.82 - ALTERED MENTAL STATUS, UNSPECIFIED Status: Acute (4) CKD (chronic kidney disease) Code(s): N18.9 - CHRONIC KIDNEY DISEASE, UNSPECIFIED Status: Chronic (5) Hypertension Code(s): I10 - ESSENTIAL (PRIMARY) HYPERTENSION Status: Chronic - Plan Plan: Acute Metabolic Encephalopathy 2/2 UTI -continues to be afebrile, WBC wnl -CT Abdomen: R nonobstructive kidney stone, possibly nidus for infection -Rocephin 1g q24h, will transition to cefdinir for outpatient treatment -UCx: presumptive E.Coli -BloodCx: NGTD -CM and Palliative consult: discharge planning, advanced directive Hypotension, resolved -will resume home blood pressure medicine Chest Pain -GERD vs MSK -denies CP -EKG: normal sinus, Trop negative -famotidine BID started Hx CKD -Cr: 1.54 > 1.33 > ???; last visit 1.84 -LR 1000 @100 ml/hr Hx HTN -holding bp meds due to soft pressures Hx GERD -started famotidine Dispo: Possible discharge home today with son and daughter in law Code status: Full code VTE PPx: heparin, CrCl 23 Diet: CC, heart healthy Addendum - Attending - Attending Attestation Date/Time: 10/11/19 1214 I personally evaluated the patient and discussed the management with Dr. Sun. I agree with the History, Examination, Assessment and Plan documented above with any addition or exceptions noted below. Patient feeling improved. Continue UTI treatment. Mentation stable. Monitor PO intake. Therapy consult.
[2019-10-11 05:48] LABS: #Eosinphils 0.3 thou/uL (0.0-0.7); #Lymphocytes 1.8 thou/uL (1.20-3.40); #Monocytes 0.8 thou/uL (0.11-0.59); #Neutrophils 4.5 thou/uL (1.40-6.50); %Basophils 0.2 % (0.0-1.0); %Eosinophils 4.4 % (0.0-10.0); %Lymphocytes 23.7 % (21.0-51.0); %Monocytes 11.1 % (0.0-10.0); %Neutrophils 60.6 % (42.0-75.0); Hemoglobin 11.8 g/dL (12.0-16.0); Mean Corpuscular HGB CONC 32.7 g/dL (32.0-36.0); Mean Corpuscular Hemoglobin 29.3 pg (27.0-31.0); Mean Corpuscular Volume 89.6 fL (78.0-98.0); Mean Platelet Volume 8.3 fL (7.4-10.4); Platelet Count 297 thou/uL (130-400); RBC Distribution Width 13.4 % (11.5-14.5); Red Blood Cell (RBC) Count 4.01 mill/uL (4.20-5.40); White Blood Cell (WBC) Count 7.4 thou/uL (4.8-10.8)
[2019-10-11 06:08] LABS: Anion Gap 14 mmol/L (10-20); BUN (Urea Nitrogen) 14 mg/dL (9.8-20.1); Calc. Creatinine Clearance 23 mL/min (70-130); Calcium 8.6 mg/dL (7.8-10.44); Carbon Dioxide 21 mmol/L (23-31); Chloride 107 mmol/L (98-107); Estimated GFR-MDRD 30; Glucose 128 mg/dL (83-110); Potassium 3.9 mmol/L (3.5-5.1); Sodium 138 mmol/L (136-145)
[2019-10-11] MEDS: Famotidine 20 MG TAB PO SCH (09:35)
[2019-10-11] MEDS: Heparin 5,000 UNITS/ML VIAL SC SCH ×3 (09:36→21:15)
--- NOTE | 2019-10-11 12:21 | PDOC.FMACP ---
Advance Care Planning - Problem (1) Palliative care encounter Status: Acute Code(s): Z51.5 - ENCOUNTER FOR PALLIATIVE CARE (2) UTI (urinary tract infection) Status: Acute (3) CKD (chronic kidney disease) Status: Chronic Code(s): N18.9 - CHRONIC KIDNEY DISEASE, UNSPECIFIED (4) Dementia Status: Acute Code(s): F03.90 - UNSPECIFIED DEMENTIA WITHOUT BEHAVIORAL DISTURBANCE (5) GERD with esophagitis Status: Acute Code(s): K21.0 - GASTRO-ESOPHAGEAL REFLUX DISEASE WITH ESOPHAGITIS (6) Hypertension Status: Chronic Code(s): I10 - ESSENTIAL (PRIMARY) HYPERTENSION - Note Participants: patient, family, palliative care Summary: Palliative Care introduced Advanced Care Planning, allowed an opportunity to decline. The diagnosis, prognosis and goals of care were discussed. Appropriate forms and documentation to accomplish the goals of care were discussed. All questions were answered. Ms Headley elected to complete the MPOA listing her son as primary and [id number] as secondary. Given information in relation to Directive to Physician to consider. Continue with aggressive measures and hopeful to transition to the home setting with home health. The Palliative Care Team will assist with completion of any outstanding forms that are identified. Copies of MPOA placed on chart as well as given to patient. Please also refer to [facility] Palliative Care registrar notes in note section. Time Spent (mins): 20
[2019-10-11] MEDS: cefTRIAXone\\ROCEPHIN 1 GM in Sodium Chloride 0.9% 100 ML IVPB SCH (21:16)
--- NOTE | 2019-10-12 06:01 | PDOC.FM ---
- Subjective Subjective: AAOx3. Pt reports that her pain has improved significantly and that she is no longer having the burning sensation. She reports that she would like to go home with home health. She removed her IV early this morning. Due to the potential d/ c and the switch to oral antibiotics, we did not put another one in. - Objective MAR Reviewed: Yes Vital Signs & Weight: Vital Signs (12 hours) Temp Pulse Resp BP BP Pulse Ox 10/12/19 04:45 97.9 F 87 17 152/84 H 94 L 10/12/19 00:56 98.1 F 87 17 154/82 H 96 10/11/19 20:00 97.9 F 94 17 144/80 H 97 10/11/19 19:57 97.9 F 94 17 144/80 H 97 Weight Weight 59.874 kg I&O: 10/10/19 10/11/19 10/12/19 06:59 06:59 06:59 Intake Total 280 840 Output Total 3175 Balance 280 -2335 Result Diagrams: 10/12/19 07:05 10/12/19 07:05 Phys Exam - Physical Examination Constitutional: NAD HEENT: moist MMs Neck: supple, full ROM Respiratory: no wheezing, no rales, no rhonchi, clear to auscultation bilateral Cardiovascular: RRR, no significant murmur Gastrointestinal: soft, non-tender, positive bowel sounds Musculoskeletal: no edema Neurological: non-focal, normal sensation Psychiatric: A&O x 3 Skin: no rash Dx/Plan (1) UTI (urinary tract infection) Status: Acute (2) Chest pain, atypical Code(s): R07.89 - OTHER CHEST PAIN Status: Acute (3) Altered mental state Code(s): R41.82 - ALTERED MENTAL STATUS, UNSPECIFIED Status: Acute (4) CKD (chronic kidney disease) Code(s): N18.9 - CHRONIC KIDNEY DISEASE, UNSPECIFIED Status: Chronic (5) Hypertension Code(s): I10 - ESSENTIAL (PRIMARY) HYPERTENSION Status: Chronic - Plan Plan: Acute Metabolic Encephalopathy 2/2 UTI -continues to be afebrile, WBC wnl -CT Abdomen: R nonobstructive kidney stone, possibly nidus for infection; f/u with urology outpatient -Rocephin 1g q24h x3 days, will transition to cefdinir 300 mg 1 daily (renally dosed) for 4 days to complete a total of 7 days -UCx: presumptive E.Coli -BloodCx: NGTD -CM and Palliative consult: discharge planning, advanced directive; recommend HH Hypotension, resolved -resumed home meds -no longer has iv access due to pt removal Chest Pain -GERD vs MSK -denies CP -EKG: normal sinus, Trop negative -famotidine BID started Hx CKD -Cr: 1.54 > 1.33 > 1.60 > 1.31 ; last visit 1.84 Hx HTN -resumed home meds Hx GERD -resumed home meds Dispo: Possible discharge home today with son and daughter in law Code status: Full code VTE PPx: heparin, CrCl 29 Diet: CC, heart healthy Addendum - Attending - Attending Attestation Date/Time: 10/12/19 2861 I personally evaluated the patient and discussed the management with Dr. Sun. I agree with the History, Examination, Assessment and Plan documented above with any addition or exceptions noted below. Patient feeling well, wanting to go home. Declines SNF, but has set up. Stable for discharge to complete PO abx course for UTI in setting of nonobstructing nephrolithiasis.
[2019-10-12] MEDS: Lactated Ringer's 1,000 ML IV SCH (07:05)
[2019-10-12 07:16] LABS: #Eosinphils 0.3 thou/uL (0.0-0.7); #Lymphocytes 1.6 thou/uL (1.20-3.40); #Monocytes 0.7 thou/uL (0.11-0.59); #Neutrophils 3.7 thou/uL (1.40-6.50); %Basophils 0.2 % (0.0-1.0); %Eosinophils 4.6 % (0.0-10.0); %Lymphocytes 25.4 % (21.0-51.0); %Monocytes 11.4 % (0.0-10.0); %Neutrophils 58.4 % (42.0-75.0); Hemoglobin 11.7 g/dL (12.0-16.0); Mean Corpuscular HGB CONC 32.4 g/dL (32.0-36.0); Mean Corpuscular Hemoglobin 29.6 pg (27.0-31.0); Mean Corpuscular Volume 91.2 fL (78.0-98.0); Platelet Count 295 thou/uL (130-400); RBC Distribution Width 13.6 % (11.5-14.5); Red Blood Cell (RBC) Count 3.95 mill/uL (4.20-5.40); White Blood Cell (WBC) Count 6.3 thou/uL (4.8-10.8)
[2019-10-12] MEDS: Famotidine 20 MG TAB PO SCH (07:37)
[2019-10-12] MEDS: Heparin 5,000 UNITS/ML VIAL SC SCH (07:37)
[2019-10-12 07:39] LABS: Anion Gap 12 mmol/L (10-20); BUN (Urea Nitrogen) 13 mg/dL (9.8-20.1); Calc. Creatinine Clearance 29 mL/min (70-130); Calcium 8.9 mg/dL (7.8-10.44); Carbon Dioxide 24 mmol/L (23-31); Chloride 106 mmol/L (98-107); Estimated GFR-MDRD 38; Glucose 127 mg/dL (83-110); Sodium 138 mmol/L (136-145)
[2019-10-12] MEDS ORDERED: Aspirin 81 mg Enteric Coated Tablet PO SCH (09:00)
[2019-10-12] MEDS ORDERED: Amlodipine 10 MG TAB PO SCH (09:00)
[2019-10-12] MEDS ORDERED: Carvedilol 6.25 MG TAB PO SCH (09:00)
[2019-10-12] MEDS ORDERED: Calcium Carbonate 600 MG TAB PO SCH (09:00)
[2019-10-12 11:54] VITALS: BP 124/69; TEMP 98.5
--- NOTE | 2019-10-13 08:58 | DIS ---
DATE OF ADMISSION: 10/09/2019 DATE OF DISCHARGE: 10/12/2019 RESIDENT: Lashaun Sun MD ADMITTING ATTENDING: Ted Coelho MD DISCHARGE ATTENDING: Jean Carlos Acosta MD CONSULTS: None. PROCEDURES/IMAGIN. Chest x-ray: No significant acute intrathoracic disease. Atherosclerosis of the aorta. Old granulomatous disease. 2. CT of the abdomen and pelvis: a. Stable nonobstructing superior pole right renal calculus. No ureteral calculi are seen bilaterally, and there is no hydronephrosis. b. Cholelithiasis. c. Colonic diverticulosis. d. Stable large duodenal diverticula. e. Chronic bibasilar lung changes. f. Extensive dense vascular calcification. PRIMARY DIAGNOSIS: Acute metabolic encephalopathy secondary to urinary tract infection. SECONDARY DIAGNOSES: 1. Hypertension. 2. Chest pain secondary to gastroesophageal reflux disease. 3. Acute kidney injury on chronic kidney disease. DISCHARGE MEDICATIONS: 1. Carvedilol 6.25 mg p.o. b.i.d. 2. Calcium carbonate 600 mg p.o. daily. 3. Amlodipine besylate 10 mg p.o. daily. 4. Ranitidine HCl 150 mg p.o. b.i.d. 5. Aspirin 81 mg p.o. daily. 6. Acetaminophen 500 mg p.o. q.6 hours p.r.n. 7. Cefdinir 300 mg p.o. daily for 7 days. DISCONTINUED MEDICATIONS: None. HISTORY OF PRESENT ILLNESS/HOSPITAL COURSE: Ms. Headley is an 89-year-old female who presented to the ED for evaluation of lower abdominal pain. The patient stated that the pain was located in the suprapubic region and she also had dysuria. According to the patient's [id number], she seemed to be more confused than her normal. The patient has a long history of UTI, the majority being E coli. The patient had a UA that was concerning for UTI. A urine culture was then done which grew out E coli. The patient was started on Rocephin while in the hospital. By October 11, the patient was asymptomatic and requesting to be discharged home. We discharged her home with home health. We also discharged her on a 7-day course of cefdinir. It was recommended that the patient follow up with Urology for the non-obstructed kidney stone seen on CT. DISPOSITION: Stable. DISCHARGE INSTRUCTIONS: 1. Location: Home with her son and [id number]. 2. Diet: Heart healthy and diabetic. 3. Activity: As tolerated. 4. Followup: Follow up with Dr. Parkinson and Urology. Job ID: [id number] [id number]
[2019-10-13] MEDS ORDERED: Famotidine 20 MG TAB PO SCH (09:00)
== END 2019-10-12 13:32 | disposition home health service (06) | DRG 689 ==
LOC: ERS 16:18 → T4-B 18:58
PROVIDERS: ADMIT Emergency Medicine; ATTEND Emergency Medicine
DX: N39.0 Urinary tract infection, site not specified (principal); G93.41 Metabolic encephalopathy; K21.9 Gastro-esophageal reflux disease without esophagitis; I12.9 Hypertensive chronic kidney disease with stage 1 through stage 4 chronic kidney disease, or unspecified chronic kidney disease; I95.9 Hypotension, unspecified; F03.90 Unspecified dementia, unspecified severity, without behavioral disturbance, psychotic disturbance, mood disturbance, and anxiety; N18.3 Chronic kidney disease, stage 3 (moderate); K21.0 Gastro-esophageal reflux disease with esophagitis; B96.20 Unspecified Escherichia coli [E. coli] as the cause of diseases classified elsewhere; Z79.899 Other long term (current) drug therapy; Z90.710 Acquired absence of both cervix and uterus; Z79.82 Long term (current) use of aspirin
CPT/HCPCS: 36415; 71045; 74176; 80048; 80053; 81001; 83605; 83690; 83880; 84145; 84484; 85025; 87040; 87077; 87086; 87186; 93005; 94760; J0690; J0696; J1644; J3010; J3370; J3490

== ENCOUNTER 2020-07-24 11:16 | Inpatient (IN) | payer MEDICARE, MEDICAID ==
[2020-07-24] MEDS ORDERED: Morphine 4 MG/ML VIAL ONE (13:03)
[2020-07-24] MEDS ORDERED: Ondansetron PF 4 MG/2 ML Vial IVP PRN (13:39)
[2020-07-24] MEDS ORDERED: hydrALAZINE 20 MG/ML VIAL SLOW IVP PRN (13:39)
[2020-07-24] MEDS ORDERED: Dextrose 5% in Water 1,000 ML IV PRN (13:39)
[2020-07-24] MEDS ORDERED: Morphine 2 MG/ML VIAL SLOW IVP PRN (13:39)
[2020-07-24] MEDS ORDERED: Dextrose 50% Abboject 50 ML SYRINGE SLOW IVP PRN (13:39)
[2020-07-24] MEDS ORDERED: Ondansetron ODT 4 MG TAB PO PRN (13:39)
[2020-07-24 13:45] LABS: #Eosinphils 0.3 thou/uL (0.0-0.7); #Lymphocytes 1.5 thou/uL (1.20-3.40); #Monocytes 1.3 thou/uL (0.11-0.59); #Neutrophils 8.3 thou/uL (1.40-6.50); %Basophils 0.2 % (0.0-1.0); %Eosinophils 2.5 % (0.0-10.0); %Lymphocytes 12.9 % (21.0-51.0); %Monocytes 11.2 % (0.0-10.0); %Neutrophils 73.2 % (42.0-75.0); Hemoglobin 11.4 g/dL (12.0-16.0); Mean Corpuscular HGB CONC 32.2 g/dL (32.0-36.0); Mean Corpuscular Hemoglobin 26.9 pg (27.0-31.0); Mean Corpuscular Volume 83.4 fL (78.0-98.0); Mean Platelet Volume 8.2 fL (7.4-10.4); Platelet Count 367 thou/uL (130-400); Red Blood Cell (RBC) Count 4.26 mill/uL (4.20-5.40); White Blood Cell (WBC) Count 11.3 thou/uL (4.8-10.8)
[2020-07-24 13:50] LABS: PTT 26.8 sec (22.9-36.1); Prothrombin Time 13.3 sec (12.0-14.7)
[2020-07-24 14:00] LABS: ALT (SGPT) 9 U/L (8-55); AST (SGOT) 18 U/L (5-34); Albumin 3.8 g/dL (3.4-4.8); Alkaline Phosphatase 109 U/L (40-110); Anion Gap 15 mmol/L (10-20); BUN (Urea Nitrogen) 20 mg/dL (9.8-20.1); Bilirubin, Total 0.4 mg/dL (0.2-1.2); Calc. Creatinine Clearance 0 mL/min (70-130); Calcium 9.1 mg/dL (7.8-10.44); Carbon Dioxide 24 mmol/L (23-31); Chloride 102 mmol/L (98-107); Globulin 4.4 g/dL (2.4-3.5); Glucose 152 mg/dL (83-110); Potassium 4.4 mmol/L (3.5-5.1); Protein, Total 8.2 g/dL (5.8-8.1); Sodium 137 mmol/L (136-145)
[2020-07-24 15:12] LABS: Magnesium 1.9 mg/dL (1.6-2.6); Phosphorus 3.4 mg/dL (2.3-4.7)
[2020-07-24] MEDS ORDERED: CEFAZOLIN 2 GM in Premix Bag 1 BAG IVPB SCH (15:15)
[2020-07-24 16:15] LABS: SARS-CoV-2 NAA Rapid Test Not Detected (NotDetected)
[2020-07-24] MEDS ORDERED: Ondansetron HCl/PF 4 MG/2 ML Vial IVP PRN (16:47)
[2020-07-24] MEDS ORDERED: Fentanyl 100 MCG/2 ML VIAL ONE ×6 (17:36→20:45)
[2020-07-24] MEDS ORDERED: Ondansetron PF 4 MG/2 ML Vial ONE (17:42)
[2020-07-24] MEDS ORDERED: Lidocaine 1% PF 5 ML VIAL ONE (17:42)
[2020-07-24] MEDS ORDERED: PROPOFOL 200 MG/20 ML VIAL ONE (17:42)
[2020-07-24] MEDS ORDERED: Rocuronium Bromide 10 MG/ML (10ML VIAL) ONE (17:42)
[2020-07-24] MEDS ORDERED: Dexamethasone 20 MG/5 ML VIAL ONE (17:42)
[2020-07-24] MEDS ORDERED: SUGAMMADEX SODIUM 200 MG/2 ML VIAL ONE (18:31)
[2020-07-25] MEDS: Acetaminophen 500 MG TAB PO SCH ×5 (00:17→17:20)
[2020-07-25] MEDS: Famotidine 20 MG TAB PO SCH ×3 (01:49→20:18)
[2020-07-25] MEDS: Senokot S 8.6-50 MG TAB PO SCH ×3 (01:49→20:17)
[2020-07-25] MEDS: traMADol HCl 50 MG TAB PO SCH ×3 (01:59→20:17)
[2020-07-25] MEDS: CEFAZOLIN 2 GM in Premix Bag 1 BAG IVPB SCH ×3 (02:02→17:20)
[2020-07-25 05:25] LABS: #Lymphocytes 0.7 thou/uL (1.20-3.40); #Monocytes 0.9 thou/uL (0.11-0.59); %Eosinophils 0.1 % (0.0-10.0); %Monocytes 6.4 % (0.0-10.0); %Neutrophils 88.5 % (42.0-75.0); Hemoglobin 9.4 g/dL (12.0-16.0); Mean Corpuscular HGB CONC 31.5 g/dL (32.0-36.0); Mean Corpuscular Hemoglobin 26.4 pg (27.0-31.0); Mean Corpuscular Volume 83.7 fL (78.0-98.0); Mean Platelet Volume 8.9 fL (7.4-10.4); Platelet Count 279 thou/uL (130-400); RBC Distribution Width 14.8 % (11.5-14.5); Red Blood Cell (RBC) Count 3.56 mill/uL (4.20-5.40); White Blood Cell (WBC) Count 14.7 thou/uL (4.8-10.8)
[2020-07-25 05:51] LABS: Anion Gap 15 mmol/L (10-20); BUN (Urea Nitrogen) 18 mg/dL (9.8-20.1); Calc. Creatinine Clearance 0 mL/min (70-130); Calcium 8.3 mg/dL (7.8-10.44); Carbon Dioxide 21 mmol/L (23-31); Chloride 104 mmol/L (98-107); Glucose 195 mg/dL (83-110); Magnesium 1.8 mg/dL (1.6-2.6); Phosphorus 3.7 mg/dL (2.3-4.7); Potassium 4.8 mmol/L (3.5-5.1); Sodium 135 mmol/L (136-145)
[2020-07-25] MEDS: Sodium Chloride 0.9% 1,000 ML IV SCH ×2 (07:23→07:25)
[2020-07-25] MEDS: Polyethylene Glycol 3350 17 GM Packet PO SCH (08:04)
[2020-07-25] MEDS: traMADol HCl 50 MG TAB PO PRN (10:42)
[2020-07-25 12:23] VITALS: BMI 21.2
[2020-07-25] MEDS ORDERED: Sodium Chloride 0.9% 500 ML IV SCH (16:00)
[2020-07-25] MEDS ORDERED: Sodium Chloride 0.9% 1,000 ML IV SCH (16:01)
[2020-07-25] MEDS ORDERED: Magnesium 2 GM/50 ML 2 GM in Premix Bag 1 BAG IVPB SCH (16:15)
[2020-07-25] MEDS: Cyclobenzaprine 10 MG TAB PO PRN (18:24)
[2020-07-25 19:17] LABS: Bacteria/HPF 2+ HPF (None Seen); Bilirubin Negative (Negative); Blood, Urine Negative (Negative); Clarity Clear (Clear); Glucose, Urine (Dipstick) 30 mg/dL (Negative); Ketone, Urine Negative (Negative); Leukocyte 75 Leu/uL (Negative); Nitrite Negative (Negative); Protein, Urine (Dipstick) Negative (Neg-Trace); RBC/HPF 0-3 HPF (0-3); Specific Gravity, Urine 1.006 (1.002-1.036); Squamous Epithelial 0-3 HPF (0-3); Urobilinogen Normal mg/dL (Less than 2); WBC/HPF 0-3 HPF (0-3)
[2020-07-25] MEDS: Carvedilol 6.25 MG TAB PO SCH (20:16)
[2020-07-25] MEDS: Gabapentin 100 MG CAP PO SCH (20:17)
[2020-07-25] MEDS: Aspirin 81 mg Enteric Coated Tablet PO SCH (20:18)
[2020-07-26] MEDS: Cyclobenzaprine 10 MG TAB PO PRN (05:29)
[2020-07-26] MEDS: traMADol HCl 50 MG TAB PO PRN (05:31)
[2020-07-26] MEDS: Acetaminophen 500 MG TAB PO SCH ×4 (05:31→17:01)
[2020-07-26 06:03] LABS: #Eosinphils 0.1 thou/uL (0.0-0.7); #Lymphocytes 1.2 thou/uL (1.20-3.40); #Monocytes 0.9 thou/uL (0.11-0.59); %Eosinophils 0.9 % (0.0-10.0); %Lymphocytes 11.7 % (21.0-51.0); %Monocytes 9.1 % (0.0-10.0); %Neutrophils 78.2 % (42.0-75.0); Hemoglobin 8.1 g/dL (12.0-16.0); Mean Corpuscular HGB CONC 30.4 g/dL (32.0-36.0); Mean Corpuscular Hemoglobin 25.8 pg (27.0-31.0); Mean Corpuscular Volume 84.8 fL (78.0-98.0); Mean Platelet Volume 8.6 fL (7.4-10.4); Platelet Count 273 thou/uL (130-400); RBC Distribution Width 14.8 % (11.5-14.5); Red Blood Cell (RBC) Count 3.14 mill/uL (4.20-5.40); White Blood Cell (WBC) Count 10.3 thou/uL (4.8-10.8)
[2020-07-26 06:21] LABS: Anion Gap 10 mmol/L (10-20); BUN (Urea Nitrogen) 18 mg/dL (9.8-20.1); Calc. Creatinine Clearance 27 mL/min (70-130); Calcium 7.8 mg/dL (7.8-10.44); Carbon Dioxide 23 mmol/L (23-31); Chloride 105 mmol/L (98-107); Glucose 127 mg/dL (83-110); Magnesium 2.4 mg/dL (1.6-2.6); Phosphorus 2.5 mg/dL (2.3-4.7); Potassium 4.4 mmol/L (3.5-5.1); Sodium 134 mmol/L (136-145)
[2020-07-26] MEDS: Polyethylene Glycol 3350 17 GM Packet PO SCH (08:24)
[2020-07-26] MEDS: Senokot S 8.6-50 MG TAB PO SCH (08:24)
[2020-07-26] MEDS: Carvedilol 6.25 MG TAB PO SCH (08:25)
[2020-07-26] MEDS: Gabapentin 100 MG CAP PO SCH (08:25)
[2020-07-26] MEDS: Famotidine 20 MG TAB PO SCH (08:25)
[2020-07-26] MEDS: traMADol HCl 50 MG TAB PO SCH (08:25)
[2020-07-26] MEDS: Aspirin 81 mg Enteric Coated Tablet PO SCH (08:25)
[2020-07-26] MEDS ORDERED: Calcium Carbonate 600 MG TAB PO SCH (09:00)
[2020-07-26 12:33] VITALS: TEMP 97.4
[2020-07-26 15:57] VITALS: BP 101/64
[2020-07-26] MEDS ORDERED: Pregabalin 50 MG CAP PO SCH (21:00)
[2020-07-27] MEDS ORDERED: Famotidine 20 MG TAB PO SCH (09:00)
== END 2020-07-26 18:47 | DRG 481 ==
LOC: ERS 11:16 → SJJU 16:22 → SDC 16:50 → SJJU 21:29
PROVIDERS: ADMIT Surgery; ATTEND Surgery
PROC: 0QS604Z Reposition Right Upper Femur with Internal Fixation Device, Open Approach (ICD-10-PCS; principal; 2020-07-24)
DX: S72.141A Displaced intertrochanteric fracture of right femur, initial encounter for closed fracture (principal); D62 Acute posthemorrhagic anemia; W01.0XXA Fall on same level from slipping, tripping and stumbling without subsequent striking against object, initial encounter; N18.30 Chronic kidney disease, stage 3 unspecified; I12.9 Hypertensive chronic kidney disease with stage 1 through stage 4 chronic kidney disease, or unspecified chronic kidney disease; K21.9 Gastro-esophageal reflux disease without esophagitis; Z20.822 Contact with and (suspected) exposure to COVID-19; Z79.899 Other long term (current) drug therapy; Z79.82 Long term (current) use of aspirin; Z91.018 Allergy to other foods; Z90.710 Acquired absence of both cervix and uterus
CPT/HCPCS: 36415; 71045; 76000; 80048; 80053; 81003; 81015; 83735; 84100; 85025; 85610; 85730; 93005; 96374; C1713; G0390; J0690; J1100; J2270; J2405; J2704; J3010; J3475; U0002